=== PATIENT | female | born 1985 | race Caucasian/White ===

== ENCOUNTER 2021-02-20 11:55 | Outpatient (CLI) | payer BC ==
[2021-02-21 17:03] LABS: SARS-CoV-2 PCR by NAA Not Detected (NotDetected)
== END 2021-02-20 11:56 | disposition home or self-care (01) ==
LOC: CSHLAB 11:55
PROVIDERS: ATTEND Obstetrics & Gynecology
DX: Z20.822 Contact with and (suspected) exposure to COVID-19 (principal)
CPT/HCPCS: U0003; U0005

== ENCOUNTER 2021-02-24 15:10 | Inpatient (IN) | payer BC ==
[2021-02-25] MEDS ORDERED: Acetaminophen 500 MG TAB PO PRN (00:26)
[2021-02-25] MEDS ORDERED: Diphenoxylate HCl/Atropine Tablet PO PRN ×2 (00:26)
[2021-02-25] MEDS ORDERED: Ondansetron PF 4 MG/2 ML Vial IVP PRN ×2 (00:26→10:14)
[2021-02-25] MEDS ORDERED: Carboprost 250 MCG/ML AMP IM PRN (00:26)
[2021-02-25] MEDS ORDERED: Ibuprofen 800 MG TAB PO PRN (00:26)
[2021-02-25] MEDS ORDERED: NS w/ Oxytocin 30 units 500 ML IV SCH ×2 (00:26)
[2021-02-25] MEDS ORDERED: Lidocaine 1% (PF) 30 ML VIAL SC PRN (00:26)
[2021-02-25] MEDS ORDERED: Butorphanol Tartrate 1 MG/ML VIAL SLOW IVP PRN (00:26)
[2021-02-25] MEDS ORDERED: hydrALAZINE 20 MG/ML VIAL SLOW IVP PRN ×2 (00:26→15:24)
[2021-02-25] MEDS ORDERED: HYDROcodone/Acetaminophen 5/325 mg Tablet PO PRN (00:26)
[2021-02-25] MEDS ORDERED: Misoprostol 200 MCG TAB PR PRN (00:26)
[2021-02-25] MEDS ORDERED: Promethazine HCl 25 MG/ML VIAL IM PRN ×2 (00:26→10:14)
[2021-02-25] MEDS: Lactated Ringer's 1,000 ML IV SCH ×3 (00:52→09:53)
[2021-02-25 00:57] VITALS: BMI 25.6
[2021-02-25 01:15] LABS: Mean Corpuscular HGB CONC 34.6 g/dL (32.0-36.0); Mean Corpuscular Hemoglobin 31.7 pg (27.0-33.0); Mean Corpuscular Volume 91.6 fl (81.6-98.3); Mean Platelet Volume 9.2 fl (7.4-10.4); Platelet Count 169 10x3/uL (150-450); RBC Distribution Width 13.2 % (11.5-14.5); Red Blood Cell (RBC) Count 3.47 10x6/uL (3.90-5.03); White Blood Cell (WBC) Count 6.6 10x3/uL (3.5-10.5)
[2021-02-25] MEDS: Misoprostol 100 MCG TAB VAG SCH ×3 (01:35→20:25)
[2021-02-25 02:11] LABS: Hep B Surf Ag Non-Reactive S/CO (NonReactive)
[2021-02-25 02:12] LABS: Syphilis Antibody Nonreactive (Nonreactive); Syphilis Antibody Index 0.02 S/CO (<1.00 Non-Reactive)
[2021-02-25 02:13] LABS: HBSAg Index 0.19 S/CO (0-0.99)
[2021-02-25] MEDS ORDERED: ePHEDrine Sulfate 50 MG/10 ML VIAL ONE (06:00)
[2021-02-25] MEDS ORDERED: Bupivacaine 0.25% HCL 30 ML VIAL ONE (06:00)
[2021-02-25] MEDS ORDERED: Fentanyl 2 mcg/Bup 0.1% Cadd 100 ML ONE (09:09)
[2021-02-25] MEDS ORDERED: Lactated Ringer's 500 ML IV PRN (10:14)
[2021-02-25] MEDS ORDERED: diphenhydrAMINE 50 MG/ML VIAL IVP PRN (10:14)
[2021-02-25] MEDS ORDERED: Acetaminophen 325 MG TAB PO PRN (10:14)
[2021-02-25] MEDS ORDERED: ePHEDrine Sulfate 50 MG/10 ML VIAL SLOW IVP PRN (10:14)
[2021-02-25] MEDS ORDERED: Naloxone HCl 0.4 mg/ml Vial IVP PRN ×2 (10:14)
[2021-02-25] MEDS ORDERED: Hydrocerin (Eucerin) Cream 120 gm Jar TOP PRN (10:14)
[2021-02-25] MEDS ORDERED: Communication Order-Pharmacy FS SCH (10:15)
[2021-02-25] MEDS ORDERED: Fentanyl 2 mcg/Bupivacaine 0.1% Cassette 100 ML EPIDURAL SCH (10:15)
[2021-02-25] MEDS ORDERED: Boostrix 0.5 ML (Tdap) VIAL IM ONE (15:24)
[2021-02-25] MEDS ORDERED: Lanolin Ointment 7 GM TUBE TOP PRN (15:24)
[2021-02-25] MEDS ORDERED: Bisacodyl 10 MG SUPP PR PRN (15:24)
[2021-02-25] MEDS ORDERED: Benzocaine-Menthol 82.5 ML CAN TOP PRN (15:24)
[2021-02-25] MEDS ORDERED: Preparation H Ointment 28 GM TUBE PR PRN (15:24)
[2021-02-25] MEDS ORDERED: Milk Of Magnesia 30 ML UDCUP PO PRN (15:24)
[2021-02-25] MEDS ORDERED: traMADol HCl 50 MG TAB PO PRN (18:38)
[2021-02-25] MEDS: Ferrous Sulfate 325 MG TAB PO SCH (20:25)
[2021-02-25] MEDS: Docusate 100 MG CAP PO SCH (21:15)
[2021-02-25] MEDS: Ibuprofen 800 MG TAB PO SCH (21:15)
[2021-02-26] MEDS: Ibuprofen 800 MG TAB PO SCH ×3 (05:39→21:11)
[2021-02-26] MEDS: Ferrous Sulfate 325 MG TAB PO SCH ×2 (07:30→16:18)
[2021-02-26] MEDS: Prenatal Vitamin 1 TAB PO SCH (08:05)
[2021-02-26] MEDS: Docusate 100 MG CAP PO SCH ×2 (08:06→21:11)
[2021-02-27] MEDS: Ibuprofen 800 MG TAB PO SCH (06:12)
[2021-02-27] MEDS: Ferrous Sulfate 325 MG TAB PO SCH (07:31)
[2021-02-27 07:46] VITALS: BP 106/68; TEMP 98
[2021-02-27] MEDS: Prenatal Vitamin 1 TAB PO SCH (09:12)
[2021-02-27] MEDS: Docusate 100 MG CAP PO SCH (09:12)
== END 2021-02-27 12:55 | disposition home or self-care (01) | DRG 807 ==
LOC: CSHLD 02-25 00:07 → CSHPP 02-25 18:00
PROVIDERS: ADMIT Obstetrics & Gynecology; ATTEND Obstetrics & Gynecology
PROC: 10E0XZZ Delivery of Products of Conception, External Approach (ICD-10-PCS; principal; 2021-02-25)
PROC: 0KQM0ZZ Repair Perineum Muscle, Open Approach (ICD-10-PCS; 2021-02-25)
PROC: 10907ZC Drainage of Amniotic Fluid, Therapeutic from Products of Conception, Via Natural or Artificial Opening (ICD-10-PCS; 2021-02-25)
PROC: 3E033VJ Introduction of Other Hormone into Peripheral Vein, Percutaneous Approach (ICD-10-PCS; 2021-02-25)
DX: O70.1 Second degree perineal laceration during delivery (principal); Z37.0 Single live birth; Z3A.39 39 weeks gestation of pregnancy; Z20.822 Contact with and (suspected) exposure to COVID-19
CPT/HCPCS: 36415; 51702; 85027; 86780; 86850; 86900; 86901; 87340; J2590; J7120; S0020